=== PATIENT | male | born 1955 | race Caucasian/White ===

== ENCOUNTER → 2018-05-08 | Outpatient (CLI) | payer OTHER, MEDICARE | LOC: FIMAGING 11:51 | PROVIDERS: ATTEND Orthopaedic Surgery | DX: Z01.818 Encounter for other preprocedural examination (principal); M17.11 Unilateral primary osteoarthritis, right knee; M25.461 Effusion, right knee; M71.21 Synovial cyst of popliteal space [Baker], right knee ==

== ENCOUNTER 2018-05-13 08:05 | Observation (INO) | payer OTHER, MEDICARE ==
--- NOTE | 2018-05-13 06:26 | PDHPUP ---
History & Physical Update H&P update statement: This history and physical update is based on an assessment of the patient which was completed after admission or registration (within 24 hours), but prior to the surgery/procedure. H&P update: H&P reviewed & patient examined, no change in patient's condition since H&P completed
[~2018-05-13 08:05] MED LIST: ACETAMINOPHEN 325 MG TAB PO ONE; DEXAMETHASONE 4 MG/ML VIAL IVP ONE; FAMOTIDINE 20 MG TAB PO ONE; ROPIVACAINE 0.2% 80 MG, EPINEPHrine 0.2 MG, KETOROLAC TROMETHAMINE 30 MG in SYRINGE 0 ML IU ONE; TRANEXAMIC ACID 3,000 MG in NS (SYRINGE) 50 ML IRR ONE; TRANEXAMIC ACID 3,000 MG/50 ML BAG IRR ONE; VANCOMYCIN 1 GM VIAL ONE; ceFAZolin 2 GM/DEXTROSE 100 ML IV ONE
[2018-05-13] MEDS ORDERED: ACETAMINOPHEN 325 MG TAB PO ONE (08:45)
[2018-05-13] MEDS ORDERED: FAMOTIDINE 20 MG TAB PO ONE (08:45)
[2018-05-13] MEDS ORDERED: DEXAMETHASONE 4 MG/ML VIAL IVP ONE (08:45)
[2018-05-13] MEDS ORDERED: ceFAZolin 2 GM/DEXTROSE 100 ML IV ONE (08:45)
[2018-05-13] MEDS ORDERED: LR 1,000 ML IV ONE (08:46)
[2018-05-13] MEDS ORDERED: LIDOCAINE 1% 2 ML INJ ID PRN (08:46)
[2018-05-13] MEDS ORDERED: MIDAZOLAM 2 MG/2 ML VIAL IVP ONE (10:42)
[2018-05-13] MEDS ORDERED: MIDAZOLAM 2 MG/2 ML VIAL ONE (10:43)
[2018-05-13] MEDS ORDERED: fentaNYL 250 MCG/5 ML INJ ONE (11:08)
[2018-05-13] MEDS ORDERED: PROPOFOL 200 MG/20 ML VIAL ONE (11:10)
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
[2018-05-13] MEDS ORDERED: POLYETHYLENE GLYCOL 3350 17 GM PKT PO PRN (12:23)
[2018-05-13] MEDS ORDERED: diphenhydrAMINE 25 MG CAP PO PRN (12:23)
[2018-05-13] MEDS ORDERED: BISACODYL 10 MG SUPP PR PRN (12:23)
[2018-05-13] MEDS ORDERED: DIPHENOXYLATE/ATROPINE LOMOTIL 1 TAB PO PRN (12:23)
[2018-05-13] MEDS ORDERED: PROMETHAZINE HCL 25 MG SUPPR PR PRN (12:23)
[2018-05-13] MEDS ORDERED: TEMAZEPAM 15 MG CAP PO PRN (12:23)
[2018-05-13] MEDS ORDERED: CYCLOBENZAPRINE 10 MG TAB PO PRN (12:23)
[2018-05-13] MEDS ORDERED: ONDANSETRON DISINTEGRATING 4 MG TAB PO PRN (12:23)
[2018-05-13] MEDS ORDERED: LACTULOSE 20 GM/30 ML UDCUP PO PRN (12:23)
[2018-05-13] MEDS ORDERED: MAGNESIUM HYDROXIDE 30 ML UDCUP PO PRN (12:23)
[2018-05-13] MEDS ORDERED: PROMETHAZINE HCL 25 MG/ML INJ IVP PRN ×2 (12:23→12:34)
[2018-05-13] MEDS ORDERED: ONDANSETRON 4 MG/2 ML VIAL IVP PRN ×2 (12:23→12:34)
[2018-05-13] MEDS ORDERED: METOCLOPRAMIDE 10 MG/2 ML VIAL IVP PRN (12:23)
--- NOTE | 2018-05-13 12:23 | POSTOPPROG ---
Post Op Note Date of Operation: 05/13/18 Surgeon: Barbara Gomez Grapple Operator: dayana gomez Anesthesiologist: dr gandhi Anesthesia: Spinal, Other (Specify) (adductor canal block) Pre-op Diagnosis: right knee OA Post-op Diagnosis: same Indication: Right knee pain Procedure: right medial knee partial arthroplasty Findings: severe medial knee OA Inf/Abcess present in the surg proc area at time of surgery?: No EBL: 50-100
[2018-05-13] MEDS ORDERED: LR 1,000 ML IV SCH (12:30)
[2018-05-13] MEDS ORDERED: NALOXONE HCL 0.4 MG/ML INJ IVP PRN (12:34)
[2018-05-13] MEDS ORDERED: fentaNYL 100 MCG/2 ML INJ IVP PRN (12:34)
--- NOTE | 2018-05-13 12:36 | POSTANESTH ---
Post Anesthetic Evaluation Cardiovascular Status: Normal, Stable Respiratory Status: Normal, Stable Level of Consciousness/Mental Status: Can Participate in Eval Pain Control: Adequate, Prn Tx Ordered Nausea/Vomiting Control: Adequate, Prn Tx Ordered Complications Possibly Related to Anesthesia: None Noted
[2018-05-13] MEDS ORDERED: fentaNYL 100 MCG/2 ML INJ ONE (13:07)
[2018-05-13] MEDS: oxyCODONE IR 5 MG TAB PO PRN ×3 (15:03→23:41)
[2018-05-13] MEDS: ACETAMINOPHEN 325 MG TAB PO SCH ×2 (18:41→23:41)
[2018-05-13] MEDS: ceFAZolin 2 GM/DEXTROSE 100 ML IV SCH (18:42)
[2018-05-13] MEDS: SENNOSIDES/DOCUSATE SODIUM TAB PO SCH (19:59)
[2018-05-13] MEDS: ASPIRIN 81 MG CHEWABLE TAB PO SCH (19:59)
[2018-05-13] MEDS: FAMOTIDINE 20 MG TAB PO SCH (19:59)
[2018-05-13] MEDS: BRIMONIDINE 0.2% EACHEYE SCH (20:37)
[2018-05-14] MEDS: ceFAZolin 2 GM/DEXTROSE 100 ML IV SCH (03:47)
[2018-05-14] MEDS: oxyCODONE IR 5 MG TAB PO PRN ×3 (05:54→10:59)
[2018-05-14] MEDS: ACETAMINOPHEN 325 MG TAB PO SCH (05:54)
[2018-05-14 08:10] VITALS: BP 144/80
[2018-05-14] MEDS: FAMOTIDINE 20 MG TAB PO SCH (08:29)
[2018-05-14] MEDS: ASPIRIN 81 MG CHEWABLE TAB PO SCH (08:30)
[2018-05-14] MEDS: SENNOSIDES/DOCUSATE SODIUM TAB PO SCH (08:30)
[2018-05-14] MEDS: BRIMONIDINE 0.2% EACHEYE SCH (08:45)
[2018-05-14] MEDS ORDERED: risperiDONE 1 MG TAB PO SCH (09:00)
[2018-05-14] MEDS ORDERED: LISINOPRIL/HCTZ 20/12.5MG 1 EA TAB PO SCH (09:00)
[2018-05-14] MEDS ORDERED: LISINOPRIL 20 MG TAB PO SCH (09:00)
--- NOTE | 2018-05-14 09:01 | GOP ---
DATE OF OPERATION: 05/13/2018 SURGEON: Felix Noble MD SENIOR STAFF PSYCHOLOGIST: Maddie Noble PA-C ANESTHESIA: Spinal. PREOPERATIVE DIAGNOSIS: Right knee osteoarthritis. POSTOPERATIVE DIAGNOSIS: Right knee osteoarthritis. PROCEDURE PERFORMED: Right medial partial knee arthroplasty with computer navigation, robotic assist. FINDINGS: severe medial DJD ESTIMATED BLOOD LOSS: 20 cc INDICATIONS: The patient is a 63-year-old male with severe and progressive pain and deformity of the right knee unresponsive to conservative care. The risks and benefits of surgical intervention were explained in detail. DESCRIPTION OF PROCEDURE: The patient was brought to the operative room and placed on the table in the supine position. Spinal anesthesia was induced without difficulty. A pneumatic tourniquet was applied about the right proximal thigh, and the leg was prepped and draped in a sterile fashion. The leg muse was applied. After exsanguination by elevation the tourniquet was inflated to 250 mmHg. Incision was made from the tibial tuberosity to the superior pole of the patella. Dissection was carried out through the subcutaneous tissue to the deep fascia using Bovie electrocautery for hemostasis. Medial parapatellar arthrotomy was carried out to the superior pole of the patella. The medial collateral ligament was elevated and the infrapatellar fat pad was resected. Internal femoral and tibial registration was carried out without difficulty and the femoral and tibial checkpoints were placed and verified for accuracy. Attention was turned to the femur. The foot print for the size 5 femoral component was cut with the 6 mm bur using the [employer] robotic system and verified for accuracy against the CT based plan. The hole was cut for the femoral post. In a similar fashion, the 6 mm bur was used to cut the foot print for the size 5 tibial component using the [employer] system and verified for accuracy against the CT based plan. Attention was turned to the posterior aspect of the knee and remnants of the medial meniscus were excised. The posterior capsule was injected with ropivacaine, epinephrine and Toradol. Trial reduction was carried out and there was excellent range of motion, alignment and stability using the size 5 femoral component and the size 5 tibial component. All trials were then removed. The joint was thoroughly irrigated and carefully dried. One package of cement and 1 gram of vancomycin were mixed in the vacuum mixer and placed on the fixation surfaces of all components. The components were implanted and all excess cement was thoroughly removed. Implant placement was verified against the CT view plan and found to be excellent. The tourniquet was deflated and all bleeders were coagulated. The wound was thoroughly irrigated and closed using interrupted sutures of 2-0 Vicryl for the joint capsule. The subcu was closed with 3-0 Vicryl and the skin with 4-0 Monocryl. Dermabond and Steri-Strips were applied, followed by a compressive dressing. The patient was then moved from the operating room to the recovery room in good condition, having tolerated the procedure well. , /[id number]/MODL MTDD
--- NOTE | 2018-05-14 10:11 | SOAPPROG ---
SOAP Progress Note Assessment/Plan: Assessment: Patient is doing well POD 1 s/p Right med MPL pain is well controlled VTE ppx: recommend aspirin 81 mg BID for 4 weeks D/c planning: dc to home today. tachycardia" HR in the 120s yesterday evening. within normal range today. recommend patient follow up with PCP to discuss and evaluate further. Plan: 05/14/18 10:10 05/14/18 10:10 Subjective: patient is doing well, denies SOB, chest pain and n/v Objective: Vital Signs Temp Pulse Resp BP Pulse Ox 36.4 C 113 H 16 144/80 H 96 05/14/18 08:00 05/14/18 08:00 05/14/18 08:00 05/14/18 08:30 05/14/18 08:00 Laboratory Results 05/14/18 04:38 05/13/18 05/14/18 05/15/18 05:59 05:59 05:59 Intake Total 2815 650 Output Total 800 200 Balance 2015 450 RLE: incision dressing is clean and dry, NVI, +pf/df ICD10 Worksheet Patient Problems: Problems Problem Status Onset Primary localized osteoarthritis of right knee Acute
--- NOTE | 2018-05-17 17:06 | CPEKG ---
Test Reason : OPEN Blood Pressure : / mmHG Vent. Rate : 105 BPM Atrial Rate : 105 BPM P-R Int : 101 ms QRS Dur : 095 ms QT Int : 468 ms P-R-T Axes : 086 029 -23 degrees QTc Int : 619 ms Sinus tachycardia Nonspecific T abnormalities, diffuse leads Prolonged QT interval Confirmed by Aaron Cortés ([id number]) on 05/17/2018 5:06:22 PM Referred By: Confirmed By:Aaron Cortés
== END 2018-05-14 11:01 | disposition home or self-care (01) ==
LOC: F3N 08:30 → INTOOBSV 08:30 → F3N 13:26
PROVIDERS: ADMIT Orthopaedic Surgery; ATTEND Orthopaedic Surgery
PROC: 8E0YXBZ Computer Assisted Procedure of Lower Extremity (ICD-10-PCS; principal; 2018-05-13 11:00)
PROC: 0SRC0J9 Replacement of Right Knee Joint with Synthetic Substitute, Cemented, Open Approach (ICD-10-PCS; principal; 2018-05-13 11:00)
PROC: 8E0Y0CZ Robotic Assisted Procedure of Lower Extremity, Open Approach (ICD-10-PCS; principal; 2018-05-13 11:00)
DX: M17.11 Unilateral primary osteoarthritis, right knee (principal); I10 Essential (primary) hypertension; G47.33 Obstructive sleep apnea (adult) (pediatric)
CPT/HCPCS: 27446; 73560; 93005; 97110; 97116; 97161; C1713; C1776; G8978; G8979; G8980; J0171; J0690; J1100; J1885; J2250; J2704; J2795; J3010; J3370